=== PATIENT | female | born 1960 | race Caucasian/White ===

== ENCOUNTER 2025-03-18 10:04 | Emergency (ER) | payer MEDICARE, BC ==
[~2025-03-18] VITALS: Ht 167.6 cm; Wt 78.5 kg
--- NOTE | 2025-03-18 10:18 | Physician Documentation ---
History of Present Illness ~ Stated Complaint: POSS BLOOD CLOT Time Seen by MD: 10:15 Source: patient Mode of Arrival: POV Exam Limitations: no limitations HPI 64-year-old female concerned for blood clot in left lower extremity. Patient stated started around gi where she had some foot pain and x-ray was negative but has noticed some posterior calf tenderness swelling and erythema to the lower extremity since the beginning of February getting worse. Patient has COPD. Patient denies any history of clotting disorders or blood clots in the past Medication Reconciliation Allergies: Coded Allergies: No Known Allergies (Unverified , 03/18/25) Past Medical History Past Medical History: COPD Past Surgical History: noncontributory Lives with: Family Lives In: Home Occupation: retired Review of Systems All Other Systems at this time: Reviewed and Negative Hematologic/Lymphatic: Reports: see HPI Physical Exam General Appearance General: Alert, no apparent distress. HEENT: moist mucous membranes. Neck: Full range of motion. Respiratory: No respiratory distress speaking in full sentences Chest: No accessory muscle use. Cardiovascular: Appears well perfused Extremity: Erythema warmth and swelling unilateral to the left lower extremity tenderness to the posterior calf small superficial varicosity near the popliteal fossa Neurologic: Oriented x4. Psychiatric: Normal mood and affect. Skin: Normal color, warm and dry. No edema, no ecchymosis. Progress Results/Orders Results/Orders Orders - KAMINI MERCEDES CHEMICAL DEPENDENCY PROFESSIONAL Vl Venous (03/18/25 10:18) Vital Signs 03/18/25 10:14 Temp 97.8 Pulse 88 Resp 18 B/P (MAP) 152/83 Pulse Ox 98 O2 Flow Rate 0 Medical Decision Making Additional information obtaine: N/A Findings Ultrasound to evaluate for DVT versus Downs's cyst versus cellulitis. Preliminary report on ultrasound indicated some cobblestoning suggestive of cellulitis a small Downs's cyst superficial veins but no DVT. We will treat for cellulitis to follow up with primary care Differential Dx:Considerations: Include: Cellulitis, Deep venous thrombosis, St rain Departure Time of Disposition: 11:33 Disposition: 01 HOME / SELF CARE / HOMELESS Impression: Primary Impression: Left leg cellulitis Condition: Stable Discharge Instructions: Cellulitis, Adult, [id number] Additional Instructions: Your ultrasound was negative for DVT but does indicate a small Downs cyst which can resolve on its own and the ultrasound also indicate cellulitis. Antibiotics due to infection follow up with primary care in 1 week Referrals: NO PRIMARY CARE PROVIDER (PCP) Prescriptions Cephalexin*Monohydrate* (Keflex*) 500 Mg Capsule 1 CAP PO Q12H for 10 Days, #20 CAP Prov: KAMINI MERCEDES NP 03/18/25 Education Educated: Patient Educated regarding: diagnosis, treatment, need for follow up Signature Scribe Signature: No scribe Attestation: The note accurately reflects work and decisions made by me.Kamini Mercedes - MAURI 03/18/25 10:18 KAMINI MERCEDES NP Mar 18, 2025 10:18
[2025-03-18] MEDS ORDERED: CEPH-585 PO (11:35)
--- NOTE | 2025-03-18 12:42 | VASCULAR REPORT ---
CLINICAL HISTORY: Left lower extremity pain and swelling TECHNIQUE: Color and duplex doppler imaging of the left lower extremity veins was performed. Vessel compression if possible was also performed. WID: COMPARISON: None FINDINGS: Right common femoral vein: Normal flow and phasicity. Left common femoral vein: Normal compressibility and flow. Left femoral vein: Normal compressibility and flow. Left popliteal vein: Normal compressibility and flow. Proximal calf veins are normally compressible. There is a nonocclusive superficial vein thrombus in a varicose vein in the mid calf. Subcutaneous edema in the left calf. IMPRESSION: 1. NO SONOGRAPHIC EVIDENCE FOR DEEP VENOUS THROMBOSIS IN THE LEFT LOWER EXTREMITY VEINS. 2. Nonocclusive thrombus in a varicose vein in the mid calf. 3. Subcutaneous edema in the left calf.
[2025-03-18 13:44] VITALS: BP 140/67; PULSE 74; RESP 16; TEMP 98; O2SAT 97
== END 2025-03-18 13:47 | disposition home or self-care (01) ==
LOC: ER 10:05
DX: L03.116 Cellulitis of left lower limb (principal); J44.9 Chronic obstructive pulmonary disease, unspecified
CPT/HCPCS: 93971; 99284